=== PATIENT | male | born 1945 | race Caucasian/White ===

== ENCOUNTER 2020-06-11 19:48 | Emergency (ER) | payer MEDICARE, MEDICAID, SELFPAY ==
--- NOTE | ~2020-06-11 | CT_ITS ---
EXAMINATION: CT HEAD WITHOUT CONTRAST CT CERVICAL SPINE WITHOUT CONTRAST CLINICAL INFORMATION: Fall. COMPARISON: CT head 12/18/2018 TECHNIQUE: Imaging was performed from the skull base to vertex without intravenous administration of contrast. In addition, helical noncontrast CT imaging was acquired through the cervical spine and source images were reviewed along with axial reconstructions and sagittal and coronal MPRs. [This CT examination was performed using dose optimization techniques as appropriate, variously including the following: *Automated exposure control *Adjustment of mA and/or kV according to patient size (this includes techniques or standardized protocols for targeted exams where dose is matched to indication/reason for exam; i.e. extremities or head) *Use of iterative reconstruction technique] DLP: 1136 mGy-cm FINDINGS: HEAD: No intracranial mass, hemorrhage, or midline shift is visualized. The ventricles and sulci are age-appropriate. No extra-axial collections are identified. The paranasal sinuses and mastoid air cells are well aerated. CERVICAL SPINE: There is no evidence of acute cervical spine fracture. Vertebral bodies remain normal in height. Cervical vertebrae have normal alignment. There is bony ankylosis of the vertebrae from C3 through T2 consistent with diffuse idiopathic skeletal hyperostosis. Large bridging osteophytes at the anterior vertebral bodies through these levels. 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 There is a prominent spur of the anterior vertebrae at C2-C3 disc level but this disc level is not fused. There is degenerative change of the facet joints most significant at C2-C3 on the left. No pre- or paravertebral soft tissue abnormality is identified. Limited assessment of the lung apices is unremarkable. CT/CT cervical spine wo con IMPRESSION: 1. No acute intracranial pathology. 2. No CT evidence of acute cervical spine fracture or traumatic subluxation
[2020-06-11 19:59] VITALS: BP 128/62; BP 128/71; PULSE 60; PULSE 68; RESP 18; O2SAT 97; BMI 28.2
--- NOTE | 2020-06-11 20:18 | ED_ITS ---
HPI - Fall General Chief Complaint: Fall Stated Complaint: FALL,+COLLAR,-LOC,+HEADSTRIKE,-THINNERS Time Seen by Provider: 06/11/20 20:17 Source: EMS and RN notes reviewed Mode of arrival: EMS Limitations: no limitations History of Present Illness HPI Narrative: Patient came from senior care for unwitnessed fall while transferring from wheelchair to the bed fell and struck his head to the floor Patient not on any blood thinner history of dementia patient does not remember what happened came with superficial laceration to the forehead no other injuries no loss of consciousness no seizures patient feeling fine at this time MD complaint: fall Onset (ago): minute(s) Related Data Allergies Allergy/AdvReac Type Severity Reaction Status Date / Time metformin [METFORMIN] Allergy Unknown UNKNOWN Verified 06/11/20 20:09 Review of Systems Review of Systems: Yes Unobtainable due to mental status (Dementia) [facility] Past Medical History Medical History Alzheimer's disease, 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, 2nd degree Bradycardia Dysphagia Frontotemporal dementia FTT (failure to thrive) in adult Hyperlipidemia Hypertensive heart disease Hypotension Hypothyroid Metabolic encephalopathy Muscle weakness (generalized) Schizophrenia Thrombocytopenia Urine retention Social History Social History Advance Directives: No Advance Directives Information Provided: No Physical Exam Vital Signs: Vital Signs: Last Vital Signs Temp 97.8 F 06/11/20 20:54 Pulse 56 06/11/20 23:17 Resp 20 06/11/20 23:17 BP 125/71 06/11/20 23:17 Pulse Ox 95 06/11/20 23:17 Body Mass Index 28.2 Const: General: comfortable and no acute distress Orientation/consciou sness: oriented to person HENMT: Head: Yes No palpable skull fracture present and Yes normocephalic Head images: 1. Superficial laceration 0.5 cm no active bleed Ears: hearing grossly normal bilaterally General nose exam: Normal external nose present Mouth: Normal oral and palatal mucosa present Eyes: General: appearance normal, both eyes and all related structures Pupils: Equal, round and reactive pupils present Neck: Neck: Yes normal visual inspection, Yes full ROM, Yes no lymphadenopathy and No tender Chest: Chest palpation & inspection: normal palpation of entire chest wall Resp: Effort & Inspection: normal respiratory effort Auscultation: clear to auscultation bilaterally Cardio: Jugular venous distension: no JVD Palpation: normal PMI Rate: regular rate Rhythm: regular rhythm Heart sounds: S1 normal heart sound present and S2 normal heart sound present Peripheral pulses: Peripheral pulses 2+ throughout GI: Inspection: Yes normal to inspection Palpation (GI): Soft to palpation and nontender Auscultation: normal bowel sounds : General: Yes no CVA tenderness Back/Spine/Pelvis: Back: no CVA tenderness Thoracic/Lumbar Spine: No thoracic spinal tenderness, No lumbar spinal tenderness and No straight leg raise positive Skin: General skin exam: no rashes or lesions noted Neuro: Other: dementia + General: oriented to person, moves all extremities, no focal motor deficits and CN's II-XI intact bilaterally Cranial nerves: Yes Equal, round and reactive pupils present Extrem: General: Yes normal to inspection, Yes no calf tenderness and No pedal edema Procedures Laceration Laceration 1: Site: face Size (cm): 1 Description: stellate Depth: simple, single layer Skin layer closed with: other (Dermabond) MDM - Fall MDM Narrative Medical decision making narrative: Patient with mechanical fall head CT is negative C-spine negative EKG without any acute ST T wave changes will discharge him back to the senior care ECG Data Attestation: I personally reviewed and interpreted this ECG as follows: Interpretation: Sinus rhythm with first-degree heart block heart rate 64 beats per minute right bundle branch block nonspecific ST T wave changes inferolateral leads no acute ST elevation or ischemia Discharge Plan Discharge Clinical Impression: Head injury Qualifiers: Encounter type: initial encounter Qualified Code(s): S09.90XA - Unspecified injury of head, initial encounter Forehead laceration Qualifiers: Encounter type: initial encounter Qualified Code(s): S01.81XA - Laceration without foreign body of other part of head, initial encounter Patient Disposition: Xfer SNF Instructions: Head Injury (ED), Skin Adhesive Care (ED) Additional Instructions: Head CT and C-spine CT are negative for any acute. Dermabond applied for superficial laceration on forehead local care as advised
--- NOTE | 2020-06-11 20:27 | ECG_ITS ---
Test Reason : FALL Blood Pressure : / mmHG Vent. Rate : 064 BPM Atrial Rate : 064 BPM P-R Int : 264 ms QRS Dur : 164 ms QT Int : 494 ms P-R-T Axes : 068 092 039 degrees QTc Int : 509 ms Sinus rhythm with 1st degree A-V block Right bundle branch block Possible Lateral infarct , age undetermined Possible Inferior infarct , age undetermined Abnormal ECG When compared with ECG of 01-NOV-2019 19:18, Borderline criteria for Lateral infarct are now Present Borderline criteria for Inferior infarct are now Present Referred By: Daniel Husain Electronically Signed By:Johnathon Gu
[2020-06-11 20:54] VITALS: BP 139/71; PULSE 64; RESP 16; TEMP 36.6; O2SAT 98
[2020-06-11 21:59] VITALS: BP 153/70; PULSE 59; RESP 18; O2SAT 95
--- NOTE | 2020-06-11 22:06 | PC.NURSE ---
C-COLLAR REMOVED BY PROVIDER. PT RESPONDS TO PAIN BY BRINGING BOTH HANDS TO FOREHEAD. SMALL LACERATION WITH SWELLING TO FOREHEAD, BLEEDING CONTROLLED. DERMABOND APPLIED TO LACERATION.
--- NOTE | 2020-06-11 22:20 | PC.NURSE ---
PT READY FOR TRANSPORT BACK TO [facility]. EMS CALLED FOR TRANSPORT, FACILITY CALLED AND REPORT GIVEN.
--- NOTE | 2020-06-11 22:30 | PC.NURSE ---
REPORT CALLED TO [facility], SPOKE WITH RN. HE NORMALLY IS SLEEPING, NOT USUALLY AWAKE AND INVOLVED IN CONVERSATION OR ORIENTED. PT CAN BECOME COMBATIVE, YELLING OUT AND STRIKING STAFF. PT REMAINED ASLEEP MOST OF ER VISIT, DID RESPOND RN STATED, WHEN LAC WAS TRATED WITH DERMABOND.
[2020-06-11 23:17] VITALS: BP 125/71; PULSE 56; RESP 20; O2SAT 95
== END 2020-06-11 23:37 | disposition skilled nursing facility (03) ==
PROVIDERS: Emergency Provider Internal Medicine
DX: S01.81XA Laceration without foreign body of other part of head, initial encounter (principal); G44.309 Post-traumatic headache, unspecified, not intractable; M54.2 Cervicalgia; W01.0XXA Fall on same level from slipping, tripping and stumbling without subsequent striking against object, initial encounter; Y93.9 Activity, unspecified; Y92.129 Unspecified place in nursing home as the place of occurrence of the external cause; Y99.9 Unspecified external cause status; Z79.899 Other long term (current) drug therapy
CPT/HCPCS: 12011; 70450; 72125; 93005; 99284

== ENCOUNTER 2021-03-31 17:50 | Emergency (ER) | payer MEDICARE, MEDICAID, SELFPAY ==
--- NOTE | ~2021-03-31 | CT_ITS ---
CT head/brain wo con CLINICAL INFORMATION: Fall COMPARISON: Prior CT from May 2020 TECHNIQUE: Department standard protocol. This CT examination was performed using dose optimization techniques as appropriate, variously including the following: *Automated exposure control *Adjustment of mA and/or kV according to patient size (this includes techniques or standardized protocols for targeted exams where dose is matched to indication/reason for exam; i.e. extremities or head) *Use of iterative reconstruction technique DLP: 1129 mGy-cm FINDINGS: CEREBRAL HEMISPHERES: There is no evidence of intra-axial or extra-axial mass, hemorrhage or acute infarct. BRAIN PARENCHYMA: Normal lord-white matter differentiation. SUBDURAL SPACE: No bleed. BASAL GANGLIA AND PINEAL GLAND: Unremarkable VENTRICLES: Symmetric and normal in size. CEREBELLUM AND BRAINSTEM: No space-occupying mass, hemorrhage or acute infarct. CEREBELLOPONTINE ANGLES: No lesion found. ORBITS: No intraorbital mass. VESSELS: Unremarkable SKULL BASE: Unremarkable INCLUDED SINUSES AT SKULL BASE: Included sinuses at skull base are clear. There is soft tissue opacification of the external auditory canals bilaterally, this is chronic and has not changed, cannot rule out external cholesteatomas versus cerumen impaction. SKULL AND SKIN: No fracture or bone lesion found. CT/CT head/brain wo con IMPRESSION: No CT evidence of intracranial space-occupying mass, bleed or infarct. Redemonstration of bilaterally opacified external auditory canal, differential would include cerumen impaction versus external cholesteatoma, this has not changed, please correlate with the clinical exam.
--- NOTE | ~2021-03-31 | CT_ITS ---
EXAMINATION: CT CERVICAL SPINE without contrast CLINICAL INFORMATION: Fall COMPARISON: No prior CT available, TECHNIQUE: Computed axial sagittal and coronal images acquired using department's standard protocol. This CT examination was performed using dose optimization techniques as appropriate, variously including the following: *Automated exposure control *Adjustment of mA and/or kV according to patient size (this includes techniques or standardized protocols for targeted exams where dose is matched to indication/reason for exam; i.e. extremities or head) *Use of iterative reconstruction technique CONTRAST: None DLP: 1129 mGy-cm FINDINGS: SKULL BASE: Visualized structures at skull base are normal, Included facial sinuses are clear, CERVICAL VERTEBRAE: There are calcification/fusion of the vertebral bodies C3-T1 both along the anterior and posterior vertebral line suggesting DISH. All vertebrae identified maintaining proper height and alignments. There are transverse radiolucent line through the vertebral body of C5 and C6 seen best on coronal view image 21 series 15, concerning for a subtle nondisplaced could be subacute acute fracture. This does not seem to extend into the central canal to cause instability. DISCS: Loss of disc height and developed osteophytes suggests degenerative disc disease at all levels. There are foraminal stenosis caused by osteophyte from protruding from the edges of endplates into the neural foramen bilaterally at C3-C4, C4-C5, C5-C6 and C6-C7. There is also concern for possible spinal central stenosis at C3, C4 and probably C5. PARAVERTEBRAL SOFT TISSUE: Paravertebral soft tissues unremarkable. CT/CT cervical spine wo con IMPRESSION: 1. There are very subtle horizontal radiolucent line through the vertebral body of C5 and C6 suggesting nondisplaced hairline fractures could be subacute or chronic. These fracture does not extend into the central canal to suggest instability. MRI could be utilized to better visualize these fracture if clinically indicated. 2. Calcification along the anterior and posterior vertebral lines suggesting DISH. 3. Developed osteophyte from the edges of endplates protruding encroaching on the neural foramen probably causing foraminal stenosis at multiple levels. 4. Probably central stenosis at C3, C4 and probably C5. This also can be assessed MRI if indicated. (Referring physician staff is being called, to be alerted of the above findings and recommendations.) Blake Nielson
[2021-03-31 17:58] VITALS: BP 136/78; PULSE 64; O2SAT 98
[2021-03-31 17:59] VITALS: BP 145/81; PULSE 68; RESP 16; O2SAT 100; BMI 24.3
--- NOTE | 2021-03-31 18:33 | ED_ITS ---
HPI - Fall General Chief Complaint: Fall Stated Complaint: fall Time Seen by Provider: 03/31/21 18:05 Source: EMS Mode of arrival: EMS Limitations: no limitations History of Present Illness HPI Narrative: 75-year-old male coming from a care home with a past medical history of schizophrenia, hypothyroidism, hyperlipidemia, dementia here after follow the wheelchair. Per staff the patient was sitting in his wheelchair and was leaning forward to grab something when he fell out of the wheelchair striking the front of his head on the ground. There was no loss of consciousness. Patient initially had no complaints but after arrival to the emergency department he started complaining of some mid and low back pain. He has a laceration to his head and his tetanus status is unknown. He is a DNR /DNI no anticoagulation use Related Data Allergies Allergy/AdvReac Type Severity Reaction Status Date / Time metformin [METFORMIN] Allergy Unknown UNKNOWN Verified 06/11/20 20:09 Review of Systems Review of Systems: Yes all other systems are reviewed and are negative Constitutional: Constitutional: Reports no additional constitutional complaints, Denies body ache(s), Denies chills, Denies fever(s), Denies headach e(s) and Denies weakness Eyes: Eyes: Reports no additional eye complaints and Denies change in vision ENT: Reports system reviewed and no additional complaints, except as documented, Denies dizziness, Denies headache(s), Denies nasal congestion, Denies nasal discharge and Denies neck pain Cardiovascular: Cardiovascular: Reports no additional cardiovascular com plaints, Denies chest pain, Denies leg edema and Denies dyspnea Respiratory: Respiratory: Reports no additional respiratory complaints, Denies cough and Denies dyspnea Gastrointestinal: Gastrointestinal: Reports no additional gastrointestinal complaints, Denies abdominal pain, Denies diarrhea, Denies nausea and Denies vomiting Genitourinary: Genitourinary: Denies urinary incontinence Musculoskeletal: Musculoskeletal: Reports no additional musculoskeletal complaints, Reports back pain, Denies arthralgias, Denies joint swelling, Denies neck pain, Denies numbness and Denies tingling Integumentary/Breasts: Skin/Breast: Reports system reviewed and no additional complaints, except as docu and Denies rash Neurologic: Reports system reviewed and no additional complaints, except as documented, Denies Abnormal speech present, Denies dizziness, Denies headache(s), Denies numbness, Denies tingling and Denies weakness [facility] Past Medical History Attestation statement: The following information was validated with the patient. Source: old records reviewed and nursing notes reviewed Medical History Alzheimer's disease, 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, 2nd degree Bradycardia Dysphagia Frontotemporal dementia FTT (failure to thrive) in adult Hyperlipidemia Hypertensive heart disease Hypotension Hypothyroid Metabolic encephalopathy Muscle weakness (generalized) Schizophrenia Thrombocytopenia Urine retention Social History Social History Advance Directives: No Advance Directives Information Provided: No Physical Exam Vital Signs: Vital Signs: Last Vital Signs Temp 97.5 F 03/31/21 21:02 Pulse 72 03/31/21 21:02 Resp 16 03/31/21 21:02 BP 145/81 H 03/31/21 21:02 Pulse Ox 98 03/31/21 21:02 BMI result Body Mass Index 24.3 Const: General: cooperative, healthy appearing, comfortable and no acute distress Orientation/consciousness: patient oriented x3 Limitations: no limitations HENMT: Head: Yes normal to inspection Head images: 1. laceration 4 cm. Bleeding is controlled. Local hematoma with no bogginess Ears: hearing grossly normal bilaterally General nose exam: Normal external nose present Face and sinus: Yes normal facial exam Mouth: Normal oral and palatal mucosa present Throat: Yes posterior oropharynx normal Eyes: Other: +cataracts present both eyes Neck: Other: cervical collar in place. Patient does have some reports of midline tenderness with no step-offs or deformities noted. Unable to assess range of motion right now Neck: Yes normal visual inspection Chest: Chest palpation & inspection: normal inspection of the chest Resp: Effort & Inspection: normal respiratory effort Auscultation: clear to auscultation bilaterally Cardio: Rate: regular rate Rhythm: regular rhythm Peripheral pulses: Peripheral pulses 2+ throughout GI: Inspection: Yes normal to inspection Palpation (GI): Soft to palpation and nontender Auscultation: normal bowel sounds Back/Spine/Pelvis: Other: midline thoracic tenderness and lumbar tenderness with no step-offs or deformities. Thoracic/Lumbar Spine: thoracic and lumbar spine normal to inspection Skin: General skin exam: no rashes or lesions noted Neuro: Other: Patient able to answer orientation questions normally. However he has moments of confusion where he begans asking for his mom to be called and make decisions for him (she is ). Upper extremities bilaterally 5/5 strength Lower extremities bilaterally 4/5 strength Unable to assess vision d/t bilateral cataracts General: patient oriented x3, no focal motor deficits, normal sensation to monofilament and Unable to assess gait Cranial nerves: Yes CN's II-XII intact bilaterally, Yes Nystagmus not present, Yes Normal facial strength present and Yes Midline tongue present Speech: No Abnormal speech present Gait exam (Neuro): Unable to assess gait Sensory Exam: Normal double simultaneous stimulation for sensation Extrem: General: Yes normal to inspection, Yes no pedal edema and Yes no calf tenderness NIH Stroke Scale Internal: Initial- Upon Arrival Level of Consciousness: Alert Level of Consciousness Questions: Answers both questions correctly Level of Consciousness Commands: Performs both tasks correctly Best Gaze: Normal Visual: No visual loss Facial Palsy: Normal Motor Arm (Right): No drift Motor Arm (Left): No drift Motor Leg (Right): No drift Motor Leg (Left): No drift Limb Ataxia: Absent Sensory: Normal Best Language: No aphasia Dysarthia: Normal Extinction and Inattention: No abnormality Score: 0 Course Course Course Narrative: 75-year-old male here with complaints of fall out of wheelchair while trying to reach something. There was head strike. No reports of loss of consciousness. Per staff at care home patient at his mental status baseline. GCS 15 with intermittent confusion. No AC therapy. On ASA 81 mg daily. +laceration. Cervical Collar in place. Will need CT head/neck, lumbar/thoracic spine x-ray after c spine cleared, tetanus updated and wound repair. 2004- There are very subtle horizontal radiolucent line through the vertebral body of C5 and C6 suggesting nondisplaced hairline fractures. These fracture does not extend into the central canal to suggest instability. CT head shows no intracranial hemorrhage. Discussed with attending physician Dr Lux. Recommended transfer to trauma center. D/t trauma will call trauma line at [facility]. Hold on images of spine until cervical collar cleared. 2039-Spoke to Dr Chatterjee (ER doc) who accepted patient as transfer to [facility] ED for trauma transfer/consult. Attempted to reach HCP Jerica Carlton . NA,. Left voicemail with call back information. Obtained labs which show stable hemoglobin. Does have ELIAN creatinine 2.06, BUN 41. Baseline 1.23, 32. Procedures Laceration Laceration 1: Site: scalp Side (If applicable): right Size (cm): 4 Description: linear Depth: simple, single layer Local Anesthetic: lidocaine 1% and with epi Amount of anesthesia used (mL): 3 Pre-repair: wound explored, irrigated extensively and deep structures intact Skin layer closed with: vicryl Size (cm): 6-0 Number of sutures: 5 Technique: simple, interrupted MDM - Fall Medical Records Attestation: I reviewed the patient's medical records. Lab Data Attestation: I reviewed the patient's lab results. Result diagrams: 03/31/21 20:20 03/31/21 20:20 Labs: Lab Results 03/31/21 03/31/21 03/31/21 Range/Units 20:12 20:20 20:20 WBC 9.8 (4.8-10.8) X10*3/uL RBC 3.68 L (4.60-5.80) X10*6/uL Hgb 10.9 L (14.0-18.0) g/dl Hct 34.7 L (42.0-52.0) % MCV 94.3 (80.0-98.0) fL MCH 29.6 (27.0-33.0) pg MCHC 31.4 (31.0-36.0) g/dl RDW 15.9 (11.0-16.0) % Plt Count 173 (160-400) X10*3/uL MPV 9.3 L (9.4-12.4) fL Immature Gran % (Auto) 0.4 (0.0-0.4) % Neut % (Auto) 80.7 H (45-73) % Lymph % (Auto) 11.7 L (20-40) % [place] % (Auto) 6.1 (2-11) % Eos % (Auto) 0.9 (0-4) % Baso % (Auto) 0.2 (0-2) % Lymph # (Auto) 1.2 (1.2-4.9) X10*3/uL [place] # (Auto) 0.6 (0.1-1.2) X10*3/uL Eos # (Auto) 0.1 (0.0-0.4) X10*3/uL Baso # (Auto) 0.0 (0.0-0.2) X10*3/uL Abs Immat Gran (auto) 0.04 H (0.00-0.03) X10*3/uL Absolute Neuts (auto) 7.9 (2.0-8.3) x10*3/uL Absolute Nucleated RBC 0.000 (0.0-0.012) X10*3/uL Nucleated RBC % (auto) 0.0 (0.0-0.2) /100WBC Sodium 145 (135-145) mmol/L Potassium 4.9 (3.3-5.1) mmol/L Chloride 108 (96-108) mmol/L Carbon Dioxide 27 (22-29) mmol/L Anion Gap 15 (12-20) BUN 41 H (9-16) mg/dL Creatinine 2.06 H (0.5-1.4) mg/dL Estim Creat Clear Calc 31.0 Estimated GFR 31 Random Glucose 103 (60-115) mg/dL Calcium 9.2 (8.4-10.2) mg/dL COVID-19 (RODNEY) Negative (Negative) COVID-19 Clin Com See Note Imaging Data CT scan - head: Attestation: I personally reviewed and interpreted this imaging study as follows: Radiologist's impression: IMPRESSION: No CT evidence of intracranial space-occupying mass, bleed or infarct. ? Redemonstration of bilaterally opacified external auditory canal, differential would include cerumen impaction versus external cholesteatoma, this has not changed, please correlate with the clinical exam. cervical spine ct: Attestation: I personally reviewed and interpreted this imaging study as follows: Radiologist's impression: IMPRESSION: ? 1. There are very subtle horizontal radiolucent line through the vertebral body of C5 and C6 suggesting nondisplaced hairline fractures could be subacute or chronic. These fracture does not extend into the central canal to suggest instability. MRI could be utilized to better visualize these fracture if clinically indicated. ? 2. Calcification along the anterior and posterior vertebral lines suggesting DISH. ? 3. Developed osteophyte from the edges of endplates protruding encroaching on the neural foramen probably causing foraminal stenosis at multiple levels. ? 4. Probably central stenosis at C3, C4 and probably C5. This also can be assessed MRI if indicated. ? (Referring physician staff is being called, to be alerted of the above findings and recommendations.) Critical Care Time Critical Care Time Critical Care Time: Yes Total Critical Care Time: 60 Attestation: multiple neurological reassessments, transfer to tertiary care center, discussion with Trauma Center Discharge Plan Discharge Clinical Impression: C5 cervical fracture, C6 cervical fracture Patient Disposition: [facility] Transfer Details: [facility] Interventions: Acute Care Transfer Worksheet (ED) Last Done: 03/31/21 21:20 Discharge Date/Time: 03/31/21 21:21
[2021-03-31] MEDS: Diphth,Pertus(ACell),Tet Adult 0.5 ML SYRINGE IM (19:15)
[2021-03-31] MEDS: Lidocaine HCl 1%/Epi 1:100,000 20 ML VIAL SUBCUT (19:19)
[2021-03-31 20:24] LABS: MANUAL DIFF FLAG NO
[2021-03-31 20:28] LABS: Basophils Percent Auto 0.2 % (0-2); Eosinophils Absolute Auto 0.1 X10*3/uL (0.0-0.4); Eosinophils Percent Auto 0.9 % (0-4); Hematocrit 34.7 % (42.0-52.0); Hemoglobin 10.9 g/dl (14.0-18.0); Imm Gran Abs Auto 0.04 X10*3/uL (0.00-0.03); Imm Gran Pct Auto 0.4 % (0.0-0.4); Lymphocytes Absolute Auto 1.2 X10*3/uL (1.2-4.9); Lymphocytes Percent Auto 11.7 % (20-40); Mean Corpuscular HGB Conc 31.4 g/dl (31.0-36.0); Mean Corpuscular Hemoglobin 29.6 pg (27.0-33.0); Mean Corpuscular Volume 94.3 fL (80.0-98.0); Mean Platelet Volume 9.3 fL (9.4-12.4); Monocytes Absolute Auto 0.6 X10*3/uL (0.1-1.2); Monocytes Percent Auto 6.1 % (2-11); Neutrophils Absolute Auto 7.9 x10*3/uL (2.0-8.3); Neutrophils Percent Auto 80.7 % (45-73); Platelet Count 173 X10*3/uL (160-400); Red Blood Count 3.68 X10*6/uL (4.60-5.80); Red Cell Distribution Width 15.9 % (11.0-16.0); White Blood Count 9.8 X10*3/uL (4.8-10.8)
[2021-03-31 20:36] LABS: COVID-19 Test Negative (Negative)
[2021-03-31 20:40] LABS: Anion Gap 15 (12-20); Blood Urea Nitrogen 41 mg/dL (9-16); Calcium 9.2 mg/dL (8.4-10.2); Carbon Dioxide 27 mmol/L (22-29); Chloride 108 mmol/L (96-108); Estimated Glomerular Filt Rate 31; Glucose Random 103 mg/dL (60-115); Potassium 4.9 mmol/L (3.3-5.1); Sodium 145 mmol/L (135-145)
[2021-03-31] MEDS: 0.9 % Sodium Chloride 1,000 ML 999 ML IV (20:53)
[2021-03-31 21:02] VITALS: BP 145/81; PULSE 72; RESP 16; TEMP 36.4; O2SAT 98
== END 2021-03-31 21:21 | disposition short-term general hospital (02) ==
PROVIDERS: Nurse Practitioner Family; Emergency Provider Emergency Medicine
DX: S12.400A Unspecified displaced fracture of fifth cervical vertebra, initial encounter for closed fracture (principal); S12.500A Unspecified displaced fracture of sixth cervical vertebra, initial encounter for closed fracture; S01.81XA Laceration without foreign body of other part of head, initial encounter; R29.700 NIHSS score 0; M54.2 Cervicalgia; G44.309 Post-traumatic headache, unspecified, not intractable; W05.0XXA Fall from non-moving wheelchair, initial encounter; Y93.9 Activity, unspecified; Y92.122 Bedroom in nursing home as the place of occurrence of the external cause; Y99.9 Unspecified external cause status; Z20.822 Contact with and (suspected) exposure to COVID-19; Z79.899 Other long term (current) drug therapy
CPT/HCPCS: 12002; 36415; 70450; 72125; 80048; 85025; 87635; 90471; 90715; 96360; 99285; 99291